=== PATIENT | male | born 1945 | race Caucasian/White ===

== ENCOUNTER 2017-05-04 08:46 | Outpatient (CLI) | payer MEDICARE, OTHER ==
[2017-05-04 12:17] LABS: ALBUMIN/GLOBULIN RATIO 1.4 (1.0-2.2); BILIRUBIN,TOTAL 0.7 mg/dL (0.2-1.0); BUN - BLOOD UREA NITROGEN 30 mg/dL (6-20); CALCIUM 9.5 mg/dL (8.5-10.3); CARBON DIOXIDE - CO2 24 mmol/L (21-32); CHLORIDE 105 mmol/L (101-111); CHOL/HDL RATIO 3.2 (<5.0); CHOLESTEROL 108 mg/dL; CREATININE 1.4 mg/dL (0.6-1.2); GFR - MDRD 50 (>89); GLUCOSE 105 mg/dL (70-100); HDL CHOLESTEROL 34 mg/dL; LDL/HDL RATIO 1.7 (<3.6); POTASSIUM 4.5 mmol/L (3.5-5.0); SODIUM 137 mmol/L (135-145); TOTAL PROTEIN 7.1 g/dL (6.7-8.2); TRIGLYCERIDES 77 mg/dL; VLDL CHOLESTEROL 15 mg/dL
== END 2017-05-04 08:47 | disposition home or self-care (01) ==
LOC: LAB.F 08:46
PROVIDERS: ATTEND Internal Medicine
DX: E78.00 Pure hypercholesterolemia, unspecified (principal); I10 Essential (primary) hypertension; I25.10 Atherosclerotic heart disease of native coronary artery without angina pectoris
CPT/HCPCS: 36415; 80053; 80061

== ENCOUNTER 2017-05-05 07:57 | Outpatient (CLI) | payer MEDICARE, OTHER ==
[2017-05-05 11:27] LABS: CALCIUM 9.4 mg/dL (8.5-10.3); CREATININE 1.2 mg/dL (0.6-1.2); POTASSIUM 4.4 mmol/L (3.5-5.0)
[2017-05-05 11:43] LABS: BILIRUBIN,URINE NEGATIVE (NEGATIVE)
[2017-05-05 11:56] LABS: WBC,URINE 0-3 /HPF (0-3)
== END 2017-05-05 07:58 | disposition home or self-care (01) ==
LOC: LAB.F 07:57
PROVIDERS: ATTEND Internal Medicine
DX: R79.89 Other specified abnormal findings of blood chemistry (principal)
CPT/HCPCS: 36415; 80048; 81001; 82043; 82570

== ENCOUNTER 2017-11-21 08:18 | Outpatient (CLI) | payer MEDICARE, OTHER ==
[2017-11-21 11:07] LABS: BASOPHILS % (AUTO) 0.6 %; EOSINOPHILS # (AUTO) 0.2 10^3/uL (0.0-0.7); EOSINOPHILS % (AUTO) 2.6 %; HGB - HEMOGLOBIN 14.8 g/dL (14.0-18.0); LYMPHOCYTES # (AUTO) 1.5 10^3/uL (1.5-3.5); LYMPHOCYTES % (AUTO) 21.3 %; MEAN CORPUSCULAR HEMOGLOBIN 30.6 pg (27.0-31.0); MEAN CORPUSCULAR HGB CONC 34.7 g/dL (32.0-36.0); MEAN CORPUSCULAR VOLUME 88.2 fL (80.0-94.0); MEAN PLATELET VOLUME 9.1 fL (7.4-11.4); MONOCYTES # (AUTO) 0.6 10^3/uL (0.0-1.0); MONOCYTES % (AUTO) 8.9 %; NEUTROPHILS # (AUTO) 4.6 10^3/uL (1.5-6.6); NEUTROPHILS % (AUTO) 66.6 %; PLT - PLATELET COUNT 148 10^3/uL (130-450); RED BLOOD COUNT 4.83 10^6/uL (4.70-6.10); RED CELL DISTRIBUTION WIDTH 13.5 % (12.0-15.0); WHITE BLOOD COUNT 6.9 x10^3/uL (4.8-10.8)
[2017-11-21 11:13] LABS: ALBUMIN 3.9 g/dL (3.2-5.5); ALBUMIN/GLOBULIN RATIO 1.5 (1.0-2.2); ALKALINE PHOSPHATASE 76 IU/L (42-121); ALT ALANINE AMINOTRANSFERASE 21 IU/L (10-60); AST ASPARTATE AMINOTRANSFERASE 22 IU/L (10-42); BILIRUBIN,TOTAL 0.8 mg/dL (0.2-1.0); BUN - BLOOD UREA NITROGEN 22 mg/dL (6-20); CALCIUM 9.1 mg/dL (8.5-10.3); CARBON DIOXIDE - CO2 23 mmol/L (21-32); CHLORIDE 109 mmol/L (101-111); CHOL/HDL RATIO 2.7 (<5.0); CHOLESTEROL 88 mg/dL; CREATININE 1.2 mg/dL (0.6-1.2); GFR - MDRD 59 (>89); GLUCOSE 107 mg/dL (70-100); HDL CHOLESTEROL 33 mg/dL; LDL CHOLESTEROL,CALCULATED 44 mg/dL; LDL/HDL RATIO 1.3 (<3.6); SODIUM 139 mmol/L (135-145); TOTAL PROTEIN 6.5 g/dL (6.7-8.2); VLDL CHOLESTEROL 11 mg/dL
== END 2017-11-21 08:19 | disposition home or self-care (01) ==
LOC: LAB.F 08:18
PROVIDERS: ATTEND Family Medicine
DX: E78.00 Pure hypercholesterolemia, unspecified (principal); I10 Essential (primary) hypertension; I25.10 Atherosclerotic heart disease of native coronary artery without angina pectoris
CPT/HCPCS: 36415; 80053; 80061; 83721; 85025

== ENCOUNTER 2018-11-06 07:47 | Outpatient (CLI) | payer MEDICARE, OTHER ==
[2018-11-06 13:12] LABS: ALBUMIN 4.3 g/dL (3.2-5.5); ALBUMIN/GLOBULIN RATIO 1.5 (1.0-2.2); ALKALINE PHOSPHATASE 89 IU/L (42-121); ALT ALANINE AMINOTRANSFERASE 25 IU/L (10-60); AST ASPARTATE AMINOTRANSFERASE 23 IU/L (10-42); BILIRUBIN,TOTAL 0.8 mg/dL (0.2-1.0); BUN - BLOOD UREA NITROGEN 24 mg/dL (6-20); CALCIUM 9.2 mg/dL (8.5-10.3); CARBON DIOXIDE - CO2 24 mmol/L (21-32); CHLORIDE 107 mmol/L (101-111); CHOL/HDL RATIO 2.3 (<5.0); CHOLESTEROL 108 mg/dL; CREATININE 1.1 mg/dL (0.6-1.2); GFR - MDRD 65 (>89); GLUCOSE 117 mg/dL (70-100); HDL CHOLESTEROL 46 mg/dL; LDL CHOLESTEROL,CALCULATED 49 mg/dL; LDL/HDL RATIO 1.1 (<3.6); SODIUM 138 mmol/L (135-145); TOTAL PROTEIN 7.1 g/dL (6.7-8.2); VLDL CHOLESTEROL 13 mg/dL
== END 2018-11-06 07:48 | disposition home or self-care (01) ==
LOC: LAB.F 07:47
PROVIDERS: ATTEND Internal Medicine
DX: E78.00 Pure hypercholesterolemia, unspecified (principal); I25.10 Atherosclerotic heart disease of native coronary artery without angina pectoris
CPT/HCPCS: 36415; 80053; 80061; 83036; 83721

== ENCOUNTER 2019-11-21 05:20 | Observation (INO) | payer MEDICARE, OTHER ==
--- NOTE | 2019-11-21 05:22 | ED Physician Documentation ---
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 The episode was associated with diaphoresis. He took two of his significant other's NTG and she drove him to the ED, and by the time he arrived, the symptoms had resolved. He has a h/o 3 v CABG approximately 16 years ago. Review of Systems Constitutional: reports: Sweats. denies: Fever, Chills Eyes: reports: Reviewed and negative Ears: reports: Reviewed and negative Nose: reports: Reviewed and negative Throat: reports: Reviewed and negative Cardiac: reports: Chest pain / pressure. denies: Palpitations, Pedal edema, Calf pain Respiratory: reports: Reviewed and negative GI: reports: Reviewed and negative Skin: reports: Reviewed and negative Musculoskeletal: reports: Reviewed and negative Neurologic: reports: Reviewed and negative PD PAST MEDICAL HISTORY - Past Medical History Past Medical History: Yes Cardiovascular: Hypertension, High cholesterol, Coronary artery disease, IN - Past Surgical History Past Surgical History: Yes Cardiovascular: CABG - Present Medications Home Medications: Ambulatory Orders Medication Instructions Recorded Confirmed Aspirin 81 mg DAILY 11/21/19 11/21/19 Losartan [Cozaar] 100 mg DAILY 11/21/19 11/21/19 Metoprolol Succinate 100 mg DAILY 11/21/19 11/21/19 Rosuvastatin Calcium 20 mg DAILY 11/21/19 11/21/19 amLODIPine [Norvasc] 5 mg DAILY 11/21/19 11/21/19 - Allergies Allergies/Adverse Reactions: Allergies Allergy/AdvReac Type Severity Reaction Status Date / Time No Known Drug Allergies Allergy Verified 11/21/19 05:31 - Living Situation Living Arrangement: reports: At home - Social History Does the pt smoke?: No PD ED PE NORMAL - Vitals Vital signs reviewed: Yes - General General: Alert and oriented X 3, No acute distress, Well developed/nourished - HEENT HEENT: Moist mucous membranes - Neck Neck: Supple, no meningeal sign - Cardiac Cardiac: RRR, No murmur, No gallop, No rub - Respiratory Respiratory: No respiratory distress, Clear bilaterally - Abdomen Abdomen: Soft, Non tender - Derm Derm: Normal color, Warm and dry - Extremities Extremities: No edema - Neuro Neuro: Alert and oriented X 3 Results - Vitals Vitals: Vital Signs - 24 hr 11/21/19 11/21/19 11/21/19 05:29 06:12 06:16 Temperature 36.2 C L Heart Rate 57 L 50 L 49 L Respiratory 20 19 24 Rate Blood Pressure 152/82 H 121/73 121/73 O2 Saturation 99 99 100 Oxygen O2 Source Room air - EKG (time done) No standard instances Rate: Rate (enter#) (53) Rhythm: Sinus bradycardia Jennings: Normal Intervals: Normal MD QRS: Normal Ischemia: Normal ST segments, Q waves (III, aVF) - Labs Labs: Laboratory Tests 11/21/19 11/21/19 11/21/19 05:35 05:35 05:35 WBC 8.3 RBC 4.72 Hgb 14.7 Hct 43.1 MCV 91.3 MCH 31.1 H MCHC 34.1 RDW 12.7 Plt Count 150 MPV 10.7 Neut # (Auto) 5.4 Lymph # (Auto) 1.8 [place] # (Auto) 0.7 Eos # (Auto) 0.2 Baso # (Auto) 0.0 Absolute Nucleated RBC 0.00 Nucleated RBC % 0.0 PT INR APTT Sodium 137 Potassium 4.1 Chloride 104 Carbon Dioxide 27 Anion Gap 6.0 BUN 24 H Creatinine 1.4 H Estimated GFR (MDRD) 49 L Glucose 134 H Calcium 9.3 Total Bilirubin 0.9 AST 21 ALT 24 Alkaline Phosphatase 81 Troponin I High Sens 6.9 Total Protein 6.8 Albumin 4.0 Globulin 2.8 Albumin/Globulin Ratio 1.4 Lipase 30 11/21/19 05:35 WBC RBC Hgb Hct MCV MCH MCHC RDW Plt Count MPV Neut # (Auto) Lymph # (Auto) [place] # (Auto) Eos # (Auto) Baso # (Auto) Absolute Nucleated RBC Nucleated RBC % PT 11.8 INR 1.0 APTT 32.2 Sodium Potassium Chloride Carbon Dioxide Anion Gap BUN Creatinine Estimated GFR (MDRD) Glucose Calcium Total Bilirubin AST ALT Alkaline Phosphatase Troponin I High Sens Total Protein Albumin Globulin Albumin/Globulin Ratio Lipase - Rads (name of study) CXR Radiology: Prelim report reviewed, See rad report PD MEDICAL DECISION MAKING - ED course Complexity details: reviewed results, re-evaluated patient, considered differential, d/w patient ED course: initial ED w/u is reassuring. However, he has several cardiac risk factors (HTN, hypercholesterolemia, h/o CAD with 3v CABG and IN). His heart score is 5. D/W Dr. Cruz, accepts to [facility] for observation. Departure - Departure Disposition: ED Place in Observation Clinical Impression: Chest pain Condition: Stable
[2019-11-21 05:48] LABS: BASOPHILS % (AUTO) 0.5 %; EOSINOPHILS # (AUTO) 0.2 10^3/uL (0.0-0.7); EOSINOPHILS % (AUTO) 2.7 %; HGB - HEMOGLOBIN 14.7 g/dL (14.0-18.0); LYMPHOCYTES # (AUTO) 1.8 10^3/uL (1.5-3.5); LYMPHOCYTES % (AUTO) 21.6 %; MEAN CORPUSCULAR HEMOGLOBIN 31.1 pg (27.0-31.0); MEAN CORPUSCULAR HGB CONC 34.1 g/dL (32.0-36.0); MEAN CORPUSCULAR VOLUME 91.3 fL (80.0-94.0); MEAN PLATELET VOLUME 10.7 fL (7.4-11.4); MONOCYTES # (AUTO) 0.7 10^3/uL (0.0-1.0); NEUTROPHILS # (AUTO) 5.4 10^3/uL (1.5-6.6); NEUTROPHILS % (AUTO) 65.8 %; PLT - PLATELET COUNT 150 10^3/uL (130-450); RED BLOOD COUNT 4.72 10^6/uL (4.70-6.10); RED CELL DISTRIBUTION WIDTH 12.7 % (12.0-15.0); WHITE BLOOD COUNT 8.3 x10^3/uL (4.8-10.8)
[2019-11-21 05:54] LABS: PT - PROTHROMBIN TIME 11.8 secs (9.9-12.6)
--- NOTE | 2019-11-21 05:58 | XRAY Report ---
Reason: Chest pain Procedure Date: 11/21/2019 Accession Number: [id number] / [id number] Procedure: XR - Chest 1 View X-Ray CPT Code: 16388 Final Report FULL RESULT: EXAM: CHEST RADIOGRAPHY EXAM DATE: 11/21/2019 05:48 AM. CLINICAL HISTORY: Chest pain. COMPARISON: None. TECHNIQUE: 1 view. FINDINGS: Lungs/Pleura: No focal opacities evident. No pleural effusion. No pneumothorax. Mediastinum: Cardiomegaly and postoperative changes. Other: None. IMPRESSION: Cardiomegaly, but no evidence of acute cardiopulmonary disease. RADIA
[2019-11-21 06:01] LABS: PARTIAL THROMBOPLASTIN TIME 32.2 secs (24.9-33.3)
[2019-11-21 06:02] LABS: ALBUMIN/GLOBULIN RATIO 1.4 (1.0-2.2); BILIRUBIN,TOTAL 0.9 mg/dL (0.2-1.0); CALCIUM 9.3 mg/dL (8.5-10.3); CREATININE 1.4 mg/dL (0.6-1.2); TOTAL PROTEIN 6.8 g/dL (6.7-8.2)
[2019-11-21] MEDS ORDERED: SODIUM CHLORIDE FLUSH 0.9% 10 ML SYRINGE IVP PRN (08:03)
[2019-11-21] MEDS ORDERED: ONDANSETRON 4 MG/2 ML VIAL IVP PRN (08:03)
[2019-11-21] MEDS ORDERED: ACETAMINOPHEN 325 MG TABLET PO PRN (08:03)
[2019-11-21] MEDS ORDERED: MORPHINE 2 MG/ML CARPUJECT IVP PRN (08:03)
[2019-11-21] MEDS ORDERED: amLODIPine 5 MG TABLET PO SCH (09:00)
[2019-11-21] MEDS ORDERED: FAMOTIDINE 20 MG TABLET PO SCH (09:00)
[2019-11-21] MEDS ORDERED: LOSARTAN 50 MG TABLET PO SCH (09:00)
[2019-11-21] MEDS ORDERED: ASPIRIN CHEW 81 MG TABLET PO SCH (09:00)
[2019-11-21] MEDS ORDERED: METOPROLOL SUCCINATE 50 MG TABLET PO SCH (09:00)
--- NOTE | 2019-11-21 09:54 | PHARMACY PROGRESS NOTE ---
- Best Possible Medication History Admit Date and Time: 11/21/19 0803 Processed by: Nursing Medication History completed: Yes As the person ultimately responsible for medication therapy, providers are able to order a medication from an existing home medication list in [facility] via the "Reconcile Routine" prior to Confirmation of that medication by business support manager. Such practice is discouraged except when the physician, in their clinical judgment, deems that a medical need exists for a medication without regard to previous use.
[2019-11-21] MEDS: SODIUM CHLORIDE FLUSH 0.9% 10 ML SYRINGE IVP SCH ×2 (09:59→16:05)
--- NOTE | 2019-11-21 11:33 | HISTORY & PHYSICAL EXAMINATION ---
DATE OF SERVICE: 11/21/2019 Physician: Georgina Cruz MD CC to: Dr Alvaro Lemon HISTORY OF PRESENT ILLNESS: This is a 74-year-old white male with a history of hypertension, obesity, coronary artery disease with prior FL 16 years ago and subsequent 3-vessel bypass surgery. Since that time, he has had no episodes of angina, is independent, walks 2-1/2 miles a day. Today after breakfast and while drinking coffee, he had new onset of left anterior chest pain along with severe diaphoresis. He states the only difference from the FL symptoms were that at this time, he had no jaw pain or left arm pain. He took 2 sublingual nitroglycerin of his girlfriend, and while his girlfriend was driving him to the ER, his symptoms dissipated, had lasted about 30 minutes total. He has had no further chest pain in the ER. Patient's cardiac risk score is 5 and he is being placed in Observation to evaluate chest pain. PAST MEDICAL HISTORY 1. Obesity. 2. Hypertension. 3. Hyperlipidemia. 4. Old FL. 5. History of coronary artery bypass graft 16 years ago. ALLERGIES: NONE. MEDICATIONS 1. Aspirin 81 mg daily at night. 2. Losartan 100 mg daily. 3. Metoprolol succinate 100 mg daily. 4. Amlodipine 5 mg daily. 5. Crestor 20 mg every night. SOCIAL HISTORY: He lives with his girlfriend. He is retired from working 25 years at [employer]. He is a nonsmoker, drinks no alcohol, and tries to exercise daily. FAMILY HISTORY: No inherited diseases. REVIEW OF SYSTEMS: Patient denies any leg edema, palpitations, syncope. He has not had a Regulatory Assistant in many years. A comprehensive review of systems was performed and the pertinent positives are listed above, the rest are negative. PHYSICAL EXAMINATION GENERAL: Obese white male, who is in no distress in bed with head of bed elevated. VITAL SIGNS: Blood pressure 148/74, pulse 49-52 in sinus rhythm, afebrile, room air saturation 99%. HEENT: Unremarkable. Moist oral mucosa is present. Good dentition. NECK: No JVD. CHEST: Clear. HEART: Normal heart sounds. No murmur. ABDOMEN: Soft, obese, with pannus, nontender. EXTREMITIES: No clubbing, cyanosis or edema. NEUROLOGIC: Grossly intact. LABORATORY DATA: Normal electrolytes, BUN 24, creatinine 1.4. Troponin high sensitivity 6.9. INR normal at 1. CBC unremarkable. CHEST X-RAY: Cardiomegaly, but no pulmonary disease. EKG: Sinus bradycardia, rate of 53, there are deep inferior Q-waves and early R/S transition, all consistent with an old inferior and posterior FL. There are no ST segment or T-wave abnormalities. There is no old EKG available for comparison. IMPRESSION/DIAGNOSES 1. Unstable angina. 2. Old myocardial infarction. 3. Status post coronary artery bypass graft, done in [place]. 4. Acute kidney injury. 5. Obesity. 6. History of hypertension. 7. History of hyperlipidemia. PLAN: Place patient in Observation status on telemetry. Cycle troponins. If they are negative, then proceed to treadmill exercise stress testing with nuclear myocardial perfusion imaging. Continue with medications, but hold orders for severe bradycardia will be added. Depending on length of stay, if he is fasting and still here in the morning, a lipid panel will be drawn. Add sl NTG prn to his regimen. Patient currently has no Regulatory Assistant since there have been no symptoms over the past 16 years, and he would not choose to be followed at [place], due to the distance, thus we would need to discuss with a Regulatory Assistant at [facility] if the stress test shows ischemia and if he needs transfer for an angiogram. CODE STATUS: FULL CODE. DEEP VENOUS THROMBOSIS PROPHYLAXIS: SCDs. ATTESTATION: Patient is expected to be discharged or transferred to another facility within 96 hours: Yes. TD: 11/21/2019 11:08 JAKE
--- NOTE | 2019-11-21 15:09 | CARDIAC PROCEDURE NOTE ---
DATE OF SERVICE: 11/21/2019 Physician: Georgina Cruz MD INDICATION: Chest pain. CARDIAC RISK FACTORS: Male gender, obesity, hypertension, hyperlipidemia. The patient has a history of prior ME and prior CABG already. DESCRIPTION OF PROCEDURE: After signing informed consent, the patient underwent a Mehran-protocol treadmill stress test with nuclear myocardial perfusion imaging. RESTING HEART RATE: 54. PEAK HEART RATE: 89 (61% predicted maximum heart rate for age). RESTING BLOOD PRESSURE: 129/64. PEAK BLOOD PRESSURE: 167/64. The patient exercised for 5 minutes and 10 seconds on a Mehran-protocol treadmill stress test. He achieved a peak heart rate of only 89 (61% PMHR) and 7.1 METs. (The patient did get his usual metoprolol dose that morning). The patient requested the exercise to stop because of fatigue, SOB and exhaustion. He rated his perceived exertion at 15/20 on the Cally scale. He developed shortness of breath, but had no chest pain. His O2 saturations were 96-98% throughout on room air. ELECTROCARDIOGRAM AT REST: Sinus bradycardia, inferior Q-waves, early R/S transition consistent with old infero-posterior ME. ELECTROCARDIOGRAM AT PEAK: 0.[address] depressions in leads V2 and V4. SUMMARY 1. Abnormal resting electrocardiogram, consistent with old infero-posterior myocardial infarction. 2. Fair to poor exercise tolerance. 3. The patient is unable to achieve target heart rate, partly because a high dose of metoprolol was given this morning. 4. Borderline significant electrocardiogram changes occur with exertion. 5. Nuclear images reported separately. 6. This patient's cardiac risk based on all the above: Moderate to high. RECOMMENDATION: If the nuclear images reveal no ischemia, it may be because of insufficient heart rate response; then would recommend repeat stress testing using pharmacologic stress. cc: Alvaro Lemon MD TD: 11/21/2019 14:46 MTDWilliam
[2019-11-21 15:11] VITALS: BP 126/59
--- NOTE | 2019-11-21 15:14 | Nuclear Medicine Report ---
Reason: Chest pain Procedure Date: 11/21/2019 Accession Number: [id number] / [id number] Procedure: NM - Myocardial Perfusion STR/RST CPT Code: Addended Final Report FULL RESULT: EXAM: SINGLE-ISOTOPE EXERCISE STRESS TEST. SINGLE-ISOTOPE AND ONE-DAY REST/STRESS MYOCARDIAL PERFUSION SCANS WITH TOMOGRAPHIC IMAGING, QUANTITATIVE ANALYSIS, WALL MOTION ANALYSIS AND CALCULATION OF EJECTION FRACTION. EXAM DATE: 11/21/2019 10:41 AM. CLINICAL HISTORY: Chest pain. COMPARISON: None available. TECHNIQUE: A rest myocardial perfusion scan was done with tomography after the intravenous administration of 10 mCi Tc-99m sestamibi. After an appropriate delay, a treadmill exercise stress was performed according to department protocol. The patient exercised for 5 minutes and 10 seconds. The maximum heart rate was 89 bpm, which was 61% of the maximum predicted heart rate of 144 bpm. At approximately peak heart rate, 40.3 mCi of Tc-99m sestamibi was injected for stress myocardial perfusion scan. Motion correction was applied when appropriate. Gated tomographic images were obtained for wall motion analysis and computation of left ventricular ejection fraction. FINDINGS: There is a large, severe, fixed defect involving the inferior and inferolateral castañeda as well as the apex. No convincing significant reversible perfusion defects. Summed stress score 15 Summed rest score 15 Summed difference score 0 Wall motion analysis demonstrates decreased septal motion. The left ventricular end-diastolic volume is 82 cc. The left ventricular end-systolic volume is 29 cc. The left ventricular ejection fraction is calculated to be 65%. IMPRESSION: 1. Large, severe, fixed defect involving the inferior and inferolateral castañeda. Smaller fixed defect in the apex. No convincing significant reversible perfusion defects. 2. Normal left ventricular ejection fraction of 65%. 3. Decreased septal wall motion. 4. Normal left ventricular cavity size, no change with stress. 5. The patient did not achieve adequate heart rate elevation with exercise which may decrease sensitivity for this exam. Please correlate findings with stress ECG tracings and procedure notes. RADIA The call report notification system was initiated by Dr. Aniceto Alberts at 03:13 PM on 11/21/2019. ADDENDUM: 11/21/19 15:18 The above call report findings were discussed with Dr Georgina Cruz by Dr. Aniceto Alberts at 03:18 PM on 11/21/2019.
--- NOTE | 2019-11-21 16:40 | Discharge Plan ---
Discharge Plan Problem Reviewed?: Yes Disposition: Home, Self Care Condition: Fair Prescriptions: Nitroglycerin [Nitrostat] 0.4 mg SL Q5MIN PRN #100 tablet PRN Reason: Chest Pain Diet: Cardiac Activity Restrictions: Activity as Tolerated Shower Restrictions: No Driving Restrictions: No Instruction Topics: Angina Unstable Health Concerns: You were here in Observation status to evaluate your recurrence of chest pain. You did not have a new heart attack. The Echocardiogram shows strong heart muscle function. The nuclear heart scan does show evidence of a scar from an old heart attack in the back of your heart but confirms overall good heart strength. The nuclear scan did not show areas that are lacking blood flow, HOWEVER, that result is during a "low level of exercise", because your heart rate did not increase to an adequate level where the test is considered CONCLUSIVE. Thus, you will need a repeat stress test done as an outpatient, using the pharmacologic agent (the non-walking stress test). Plan of Treatment: You are being sent home with a new prescription for nitroglycerin sublingual for you to use if there should be more angina. The prescription was sent electronically to your [facility] pharmacy in [place]. Resume all your other usual medications. You need another stress test, without having caffeine for 24 hours preceding it, and using a medicine that creates adequate stress to make the test a conclusive test. Until that repeat stress test is done, you should NOT BE exercising with the 2.5 mile walks daily. You are allowed to do average daily activities like cooking and driving and shopping, however. You need to see your PCP to get an appointment for an outpatient stress test and a referral to a Senior Mobile Solutions Architect, for further evaluation and management of your coronary disease. Care Goals: Improvement in symptoms and stabilization are the goals. Assessment: Patient understands and is agreeable with the plan. Additional Instructions or Follow Up instructions: If you have new or worsening symptoms, call your PCP or Senior Mobile Solutions Architect for advice, or come to the ER. No Smoking: If you smoke, Please STOP! Call for help. Follow-up with: Alvaro Lemon MD [Primary Care Provider] -
--- NOTE | 2019-11-21 17:30 | DISCHARGE SUMMARY ---
"Discharge Summary Admit Date: 11/21/19 Discharge Date: 11/21/19 Discharging Provider: Dr Georgina Cruz Primary Care Provider: Dr Alvaro Lemon Code Status: Attempt Resuscitation Condition at Discharge: Fair Discharge Disposition: 01 Home, Self Care - HPI History of Present Illness: This is a 74-year-old white male with history of hypertension and hyperlipidemia who had an NY 16 years ago that led to three-vessel CABG. He has not had chest pain since that time and has not had a Basket Hand Braider. He walks 2.5 miles a day (except when it rains). After breakfast this morning he developed similar chest pain with diaphoresis (but without left arm pain and without jaw pain, which he had with his [place]). He took 2 sublingual nitroglycerin, and the chest pain resolved by the time he was driven to the ER by his girlfriend. EKG shows old inferior Q waves, first troponin is within normal limits. Because of his cardiac history and recurrence of his typical angina, he is being admitted in Observation status for chest pain evaluation and management. - CONSULTS | PROCEDURES Procedures: Exercise Stress test with Nuclear Myocardial Perfusion imaging - HOSPITAL COURSE Hospital Course: 1) Unstable angina This was a first recurrence of angina since his CABG, therefore, by definition, unstable angina. He had no further episodes of chest pain. His troponins were within normal limits x2. He proceeded to have a nuclear stress test: a pharmacologic stress test was ordered (since his HR was bradycardic on Metoprolol and there was concern over him not achieving target HR with walking), but he had taken in caffeine just 4 hours previously, therefore he had a treadmill stress test. With exercise, he did not achieve target heart rate and became exhausted and SOB before target. There was no desaturation. He had no chest pain with exercise. The nuclear scan revealed a fixed defect, [id number] scar, but no areas of ischemia, however this was at an insufficient peak heart rate. The patient was discharged with a new prescription for sublingual nitroglycerin prn and advised to see his PCP for referral to a Basket Hand Braider and a rescheduling of an outpatient pharmacologic stress test. 2) Old [place] A resting Echo was done that did not describe a regional wall motion abnormality and reported an LVEF of 65%. The nuclear scan DID confirm an old [place], but also reported a good EF of 65%. 3) S/P CABG He is 16 years post CABG and has had no stress test in this time. We discussed that CABGs start to have stenoses at 15 years, which may be the cause of his new angina. 4) JADYN His BUN/creat was 24/1.4. We had no old labs for comparison. 5) Obesity His BMI is 31, and weight loss would be prudent. 6) Hx HTN BP was under good control. His meds were kept unchanged. 7) Hx hyperlipidemia His Crestor was kept the same. - ALLERGIES Allergies/Adverse Reactions: Allergies Allergy/AdvReac Type Severity Reaction Status Date / Time ezetimibe [From Zetia] Allergy Unknown Verified 11/22/19 07:43 - MEDICATIONS Home Medications: Ambulatory Orders Medication Instructions Recorded Confirmed Aspirin 81 mg DAILY 11/21/19 11/21/19 Losartan [Cozaar] 100 mg DAILY 11/21/19 11/21/19 Metoprolol Succinate 100 mg DAILY 11/21/19 11/21/19 Nitroglycerin [Nitrostat] 0.4 mg SL Q5MIN PRN #100 tablet 11/21/19 Rosuvastatin Calcium 20 mg DAILY 11/21/19 11/21/19 amLODIPine [Norvasc] 5 mg DAILY 11/21/19 11/21/19 - PHYSICAL EXAM AT DISCHARGE General Appearance: positive: No acute distress, Alert Eyes Bilateral: positive: Normal inspection, EOMI ENT: positive: ENT inspection nml, No signs of dehydration Neck: positive: Nml inspection, No JVD Respiratory: positive: No respiratory distress, Breath sounds nml Cardiovascular: positive: Regular rate & rhythm, No murmur Abdomen: positive: Non-tender, No distention, Other (Obese) Skin: positive: Color nml Extremities: positive: Non-tender, No pedal edema Neurologic/Psychiatric: positive: Oriented x3, Other (Grossly intact) - LABS Result Diagrams: 11/21/19 05:35 11/21/19 05:35 - DIAGNOSTIC IMAGING Diagnostic Imaging Results: Final report reviewed, Discussed with radiologist - FOLLOW UP Follow Up: See PCP in 5-7 days, for ordering a pharmacologic stress test and referral to a Basket Hand Braider. - TIME SPENT Time Spent in Discharge (Minutes): 40"
== END 2019-11-21 18:10 | disposition home or self-care (01) ==
LOC: ED 05:20 → MS2 08:03
PROVIDERS: ADMIT Internal Medicine; ATTEND Internal Medicine
DX: I25.110 Atherosclerotic heart disease of native coronary artery with unstable angina pectoris (principal); I10 Essential (primary) hypertension; E78.5 Hyperlipidemia, unspecified; E66.9 Obesity, unspecified; Z68.31 Body mass index [BMI] 31.0-31.9, adult; I25.2 Old myocardial infarction; Z79.82 Long term (current) use of aspirin; Z95.1 Presence of aortocoronary bypass graft
CPT/HCPCS: 36415; 71045; 78452; 80053; 83690; 84484; 85025; 85610; 85730; 93005; 93017; 93306; 99284; 99285; A9500; G0378

== ENCOUNTER 2020-08-29 05:15 | Outpatient (CLI) | payer MEDICARE | END 2020-08-29 05:16 | disposition EMS.NT | LOC: EMS 05:15 | DX: M54.5 Low back pain (principal); R10.9 Unspecified abdominal pain ==

== ENCOUNTER 2020-08-29 06:03 | Emergency (ER) | payer MEDICARE ==
[2020-08-29] MEDS ORDERED: DEXAMETHASONE 10 MG/ML VIAL IVP STA (06:26)
[2020-08-29] MEDS ORDERED: SODIUM CHLORIDE 0.9% 1,000 ML IV STA (06:26)
[2020-08-29] MEDS ORDERED: KETOROLAC 30 MG/ML VIAL IVP STA (06:26)
--- NOTE | 2020-08-29 06:29 | ED Physician Documentation ---
PD HPI BACK PAIN - Stated complaint Stated Complaint: RT BACK/SIDE PAIN - Chief complaint Chief Complaint: Back Pain - History obtained from History obtained from: Patient - History of Present Illness Timing - onset: How many days ago (4) Timing - duration: Days (4) Timing - details: Gradual onset, Still present Location: Lower, Right Quality: Pain, Spasm, Sharp Associated symptoms: No: Fever, Weakness, Numbness, Incontinent of urine, Unable to urinate, Hematuria, Incontinent of stool Improves with: Rest, Position, Meds Worsened by: Movement Similar symptoms before: Diagnosis (kidney stone) Recently seen: Not recently seen - Additional information Additional information: Previously well 75-year-old male with a history of hypertension and coronary artery disease s/p CABG 17 years ago has developed acute right flank pain about 4 days ago. He states that it started out slowly and was he was able to control pain with Excedrin and time has gone by this morning the pain is much worse he has pain when he moves. He does not have any history of an injury to his back no heavy lifting no odd positions.He has not otherwise been ill states that he was constipated and he took some Ex-Lax and resolve that. The pain he has is radiating into the right groin. Review of Systems Constitutional: denies: Fever Eyes: denies: Decreased vision Ears: denies: Ear pain Nose: denies: Congestion Throat: denies: Sore throat Cardiac: denies: Chest pain / pressure, Palpitations Respiratory: denies: Dyspnea, Cough GI: denies: Abdominal Pain, Nausea, Vomiting : denies: Dysuria, Frequency Skin: denies: Rash Musculoskeletal: reports: Back pain. denies: Neck pain, Extremity pain Neurologic: denies: Generalized weakness, Focal weakness, Numbness PD PAST MEDICAL HISTORY - Past Medical History Past Medical History: Yes Cardiovascular: Hypertension, High cholesterol, Coronary artery disease, [place] Respiratory: None Neuro: None Endocrine/Autoimmune: None GI: None : Kidney stones HEENT: None Psych: None Musculoskeletal: None Derm: None - Past Surgical History Past Surgical History: Yes Cardiovascular: CABG - Present Medications Home Medications: Ambulatory Orders Medication Instructions Recorded Confirmed Aspirin 81 mg DAILY 11/21/19 08/29/20 Losartan [Cozaar] 100 mg DAILY 11/21/19 08/29/20 Metoprolol Succinate 100 mg DAILY 11/21/19 08/29/20 Nitroglycerin [Nitrostat] 0.4 mg SL Q5MIN PRN #100 tablet 11/21/19 08/29/20 Rosuvastatin Calcium 20 mg DAILY 11/21/19 08/29/20 amLODIPine [Norvasc] 5 mg DAILY 11/21/19 08/29/20 - Allergies Allergies/Adverse Reactions: Allergies Allergy/AdvReac Type Severity Reaction Status Date / Time ezetimibe [From Zetia] Allergy Unknown Verified 08/29/20 06:17 - Social History Does the pt smoke?: No Smoking Status: Never smoker Does the pt drink ETOH?: No Does the pt have substance abuse?: No - Immunizations Immunizations are current?: Yes - POLST Patient has POLST: No PD ED PE NORMAL - Vitals Vital signs reviewed: Yes (normal ) - General General: Alert and oriented X 3, Well developed/nourished, Other (The patient appears to be in pain with any movement. ) - HEENT HEENT: Atraumatic, PERRL, EOMI - Neck Neck: Supple, no meningeal sign, No bony TTP - Cardiac Cardiac: RRR, No murmur - Respiratory Respiratory: No respiratory distress, Clear bilaterally - Abdomen Abdomen: Normal bowel sounds, Soft, Non tender, Non distended, No organomegaly - Back Back: No CVA TTP, No spinal TTP - Derm Derm: Normal color, Warm and dry, No rash - Extremities Extremities: No deformity, No edema - Neuro Neuro: Alert and oriented X 3, propulsion generator repairer 2-12 intact, No motor deficit, No sensory deficit, Normal speech Eye Opening: Spontaneous Motor: Obeys Commands Verbal: Oriented GCS Score: 15 - Psych Psych: Normal mood, Normal affect Results - Vitals Vitals: Vital Signs - 24 hr 08/29/20 08/29/20 06:14 06:18 Temperature 36.0 C L Heart Rate 57 L 63 Respiratory 17 17 Rate Blood Pressure 153/90 H O2 Saturation 100 98 Oxygen O2 Source Room air - Labs Labs: Laboratory Tests 08/29/20 06:49 Sodium 140 Potassium 4.2 Chloride 106 Carbon Dioxide 22 Anion Gap 12.0 BUN 24 H Creatinine 1.3 H Estimated GFR (MDRD) 54 L Glucose 134 H Calcium 9.7 Total Bilirubin 0.7 AST 19 ALT 20 Alkaline Phosphatase 86 Total Protein 7.4 Albumin 4.4 Globulin 3.0 Albumin/Globulin Ratio 1.5 Lipase 32 Procedures - Bedside sono Bedside sono by EMP: With use bedside ultrasound the right kidney is imaged there is per to be hydronephrosis and it is mildly sonographically tender. PD MEDICAL DECISION MAKING - ED course Complexity details: reviewed old records, reviewed results, re-evaluated patient, considered differential, d/w patient ED course: 75-year-old male with a 4-day history of right flank pain has some hydronephrosis on bedside ultrasound examination of the right kidney. His exam is concerning for the possibility of acute back spasm and kidney stone. The patient however gives a history that this is mostly worse with movement and that would not be consistent with kidney stone. He is administered IV saline, todadal, decadron and a CT of the abdomen and pelvis is obtained. At shift change the results of the scan are pending a read by the radiologist and the care of the patient is turned over to Dr. Pino.
[2020-08-29 07:08] LABS: ALBUMIN 4.4 g/dL (3.2-5.5); ALBUMIN/GLOBULIN RATIO 1.5 (1.0-2.2); BILIRUBIN,TOTAL 0.7 mg/dL (0.2-1.0); CALCIUM 9.7 mg/dL (8.5-10.3); CREATININE 1.3 mg/dL (0.6-1.2); TOTAL PROTEIN 7.4 g/dL (6.7-8.2)
--- NOTE | 2020-08-29 07:09 | ED Physician Documentation ---
ED Addendum - Addendum Addendum: 08/29/20 07:08 Patient endorsed to me by Dr. Gilman pending CT read. Will evaluate and treat. 08/29/20 08:00 Upon interview of the patient, he is confirms that he has had 3 to 4 days of gradual onset constant sharp right flank pain radiating to the lower back, worse with movement and twisting of the back as well as pressing on the muscle, initially mild and worsening to moderate pain, partially relieved with Toradol which we gave here, without any associated fever, urinary symptoms, abdominal pain, nausea, shortness of breath, chest pain, cough. Patient had a normal bowel movement yesterday. He is passing flatus. No history of abdominal surgeries. Upon review of his CT results I discussed with Dr. Cristina, radiologist. Patient has a chronic low-grade 3 cm partial small bowel obstruction without fat stranding or bowel thickening, requiring outpatient follow-up with GI. She noted that he has no enlarged lymph nodes, no discernible mass, no adhesions noted. He also has a duodenal diverticulum which does not appear inflamed. Of note, he does have posterior disc protrusion at L4/L5. Discussed these results with the patient who is aware that he needs to follow-up outpatient GI. Abdomen completely nontender. Rectal exam with brown stool in the vault. No CVA ttp. 08/29/20 08:16 08/29/20 08:53 Patient's symptoms resolved s/p robaxin, indicating muscle strain is likely primary cause of symptoms. will give script and strict return precautions. F/u GI, general surgery, primary doctor for incidental findings. 08/29/20 09:06 Diagnosis: 1. muscle strain 2. diverticulosis 3. kidney stone 4. partial small bowel obstruction 5. gallstones
[2020-08-29 07:17] LABS: BASOPHILS # (AUTO) 0.1 10^3/uL (0.0-0.1); EOSINOPHILS # (AUTO) 0.2 10^3/uL (0.0-0.7); EOSINOPHILS % (AUTO) 2.5 %; HGB - HEMOGLOBIN 15.8 g/dL (14.0-18.0); LYMPHOCYTES # (AUTO) 1.2 10^3/uL (1.5-3.5); LYMPHOCYTES % (AUTO) 17.2 %; MEAN CORPUSCULAR HEMOGLOBIN 31.1 pg (27.0-31.0); MEAN CORPUSCULAR HGB CONC 34.1 g/dL (32.0-36.0); MEAN CORPUSCULAR VOLUME 91.3 fL (80.0-94.0); MEAN PLATELET VOLUME 10.9 fL (7.4-11.4); MONOCYTES # (AUTO) 0.6 10^3/uL (0.0-1.0); MONOCYTES % (AUTO) 8.4 %; NEUTROPHILS # (AUTO) 4.8 10^3/uL (1.5-6.6); NEUTROPHILS % (AUTO) 70.5 %; PLT - PLATELET COUNT 167 10^3/uL (130-450); RED BLOOD COUNT 5.08 10^6/uL (4.70-6.10); RED CELL DISTRIBUTION WIDTH 12.6 % (12.0-15.0); WHITE BLOOD COUNT 6.8 x10^3/uL (4.8-10.8)
[2020-08-29 07:58] LABS: BILIRUBIN,URINE NEGATIVE (NEGATIVE); GLUCOSE, URINE (UA) NEGATIVE (NEGATIVE); KETONES,URINE (UA) NEGATIVE (NEGATIVE); LEUKOCYTE ESTERASE, URINE NEGATIVE (NEGATIVE); NITRITE,URINE NEGATIVE (NEGATIVE); OCCULT BLOOD,URINE NEGATIVE (NEGATIVE); PH,URINE 5.5 PH (5.0-7.5); PROTEIN,URINE NEGATIVE (NEGATIVE); UROBILINOGEN,URINE 0.2 (NORMAL) E.U./dL (NORMAL)
[2020-08-29 08:03] LABS: CLARITY,URINE HAZY (CLEAR)
[2020-08-29] MEDS ORDERED: methocarbamoL 500 MG TABLET PO STA (08:13)
[2020-08-29] MEDS ORDERED: ACETAMINOPHEN 325 MG TABLET PO STA (08:13)
[2020-08-29 08:14] LABS: AMORPHOUS SEDIMENT,UR Moderate /LPF; BACTERIA,URINE Rare /HPF (None Seen); MUCUS,URINE Moderate Strands; RBC,URINE 0-5 /HPF (0-5); SQUAMOUS EPITHELIAL CELL,UR RARE Squamous (<= Few)
[2020-08-29] MEDS ORDERED: LIDOCAINE PATCH 5% TOP STA (08:15)
[2020-08-29 09:00] VITALS: BP 133/90
--- NOTE | 2020-08-29 09:59 | CT Report ---
PROCEDURE: Abdomen/Pelvis WO INDICATIONS: right flank pain TECHNIQUE: Noncontrast 5 mm thick sections acquired from the diaphragms to the symphysis. 5 mm coronal and sagi ttal reformats were then performed. For radiation dose reduction, the following was used: automated exposure control, adjustment of mA and/or kV according to patient size. COMPARISON: CT abdomen 12/22/2009 FINDINGS: Image quality: Excellent. ABDOMEN: Lung bases: Minimal appearance of pulmonary interstitial with groundglass opacity in the left lower l obe. Heart size is normal. Solid organs: Liver and spleen are normal in size. Gallbladder demonstrates small dependent calcifi cations without wall thickening Pancreas is normal in contours. No adrenal nodules. Kidneys are at rophic with bilateral cysts. Punctate-RT left inferior pole renal calculus. Peritoneum and bowel: Unenhanced bowel loops demonstrate normal wall thickness and caliber. Duodenal diverticulum is present. Colonic diverticula are present without associated inflammatory change. No free fluid or air. Nodes and vessels: No retroperitoneal or mesenteric adenopathy by size criteria. Aorta and inferior vena cava are normal in caliber. Miscellaneous: Ventral hernia with borderline bowel herniation. Hiatal hernia is present. PELVIS: Genitourinary: Bladder wall thickness is normal. Miscellaneous: No inguinal hernias or adenopathy. Bones: No suspicious bony lesions. No vertebral body compression fractures. IMPRESSION: 1. Nonobstructing superior left renal calculus. 2. Cholelithiasis without imaging evidence of cholecystitis. 3. Duodenal diverticulum. 4. Minimal left lower lobe appearance of opacity. This could represent groundglass like appearance se condary to infection or inflammation. However, appearance could also be secondary to atelectasis and/ or dependent edema. 5. Diverticulosis. The above findings are concordant with preliminary report. Reviewed by: Rose Mary South MD on 08/29/2020 9:58 AM [facility] Approved by: Rose Mary South MD on 08/29/2020 9:58 AM PST Station ID: [id number]
== END 2020-08-29 09:00 | disposition home or self-care (01) ==
LOC: ED 06:03
DX: S39.012A Strain of muscle, fascia and tendon of lower back, initial encounter (principal); X58.XXXA Exposure to other specified factors, initial encounter; K80.20 Calculus of gallbladder without cholecystitis without obstruction; K57.10 Diverticulosis of small intestine without perforation or abscess without bleeding; K56.600 Partial intestinal obstruction, unspecified as to cause; Z95.1 Presence of aortocoronary bypass graft; I10 Essential (primary) hypertension; N13.30 Unspecified hydronephrosis
CPT/HCPCS: 36415; 74176; 80053; 81001; 83690; 85025; 96374; 96375; 99284; A9270; 81003; 87086

== ENCOUNTER 2020-09-24 07:46 | Outpatient (CLI) | payer MEDICARE ==
[2020-09-24 08:01] LABS: BASOPHILS # (AUTO) 0.1 10^3/uL (0.0-0.1); BASOPHILS % (AUTO) 0.9 %; EOSINOPHILS # (AUTO) 0.3 10^3/uL (0.0-0.7); EOSINOPHILS % (AUTO) 4.9 %; HCT - HEMATOCRIT 45.8 % (42.0-52.0); HGB - HEMOGLOBIN 15.4 g/dL (14.0-18.0); LYMPHOCYTES # (AUTO) 1.5 10^3/uL (1.5-3.5); LYMPHOCYTES % (AUTO) 23.3 %; MEAN CORPUSCULAR HEMOGLOBIN 30.7 pg (27.0-31.0); MEAN CORPUSCULAR HGB CONC 33.6 g/dL (32.0-36.0); MEAN CORPUSCULAR VOLUME 91.4 fL (80.0-94.0); MEAN PLATELET VOLUME 10.7 fL (7.4-11.4); MONOCYTES # (AUTO) 0.6 10^3/uL (0.0-1.0); NEUTROPHILS # (AUTO) 3.8 10^3/uL (1.5-6.6); NEUTROPHILS % (AUTO) 60.6 %; PLT - PLATELET COUNT 162 10^3/uL (130-450); RED BLOOD COUNT 5.01 10^6/uL (4.70-6.10); RED CELL DISTRIBUTION WIDTH 12.7 % (12.0-15.0); WHITE BLOOD COUNT 6.3 x10^3/uL (4.8-10.8)
[2020-09-24 08:20] LABS: ALBUMIN 4.4 g/dL (3.2-5.5); ALBUMIN/GLOBULIN RATIO 1.7 (1.0-2.2); BILIRUBIN,TOTAL 0.7 mg/dL (0.2-1.0); CALCIUM 9.5 mg/dL (8.5-10.3); CREATININE 1.2 mg/dL (0.6-1.2); POTASSIUM 4.5 mmol/L (3.5-5.0)
== END 2020-09-24 07:47 | disposition home or self-care (01) ==
LOC: LAB 07:46
PROVIDERS: ATTEND Internal Medicine
DX: I10 Essential (primary) hypertension (principal)
CPT/HCPCS: 36415; 80053; 85025

== ENCOUNTER 2021-04-13 09:02 | Outpatient (CLI) | payer MEDICARE ==
[2021-04-13 09:16] LABS: BASOPHILS % (AUTO) 0.5 %; EOSINOPHILS # (AUTO) 0.2 10^3/uL (0.0-0.7); HGB - HEMOGLOBIN 14.9 g/dL (14.0-18.0); LYMPHOCYTES # (AUTO) 1.2 10^3/uL (1.5-3.5); LYMPHOCYTES % (AUTO) 14.2 %; MEAN CORPUSCULAR HGB CONC 32.4 g/dL (32.0-36.0); MEAN CORPUSCULAR VOLUME 92.7 fL (80.0-94.0); MEAN PLATELET VOLUME 11.2 fL (7.4-11.4); MONOCYTES # (AUTO) 0.6 10^3/uL (0.0-1.0); MONOCYTES % (AUTO) 7.1 %; NEUTROPHILS # (AUTO) 6.5 10^3/uL (1.5-6.6); NEUTROPHILS % (AUTO) 75.8 %; PLT - PLATELET COUNT 155 10^3/uL (130-450); RED BLOOD COUNT 4.96 10^6/uL (4.70-6.10); RED CELL DISTRIBUTION WIDTH 12.7 % (12.0-15.0); WHITE BLOOD COUNT 8.5 x10^3/uL (4.8-10.8)
[2021-04-13 09:36] LABS: ALBUMIN 4.5 g/dL (3.2-5.5); ALBUMIN/GLOBULIN RATIO 1.7 (1.0-2.2); ALKALINE PHOSPHATASE 81 IU/L (42-121); ALT ALANINE AMINOTRANSFERASE 22 IU/L (10-60); AST ASPARTATE AMINOTRANSFERASE 20 IU/L (10-42); BILIRUBIN,TOTAL 0.7 mg/dL (0.2-1.0); BUN - BLOOD UREA NITROGEN 21 mg/dL (6-20); CALCIUM 9.6 mg/dL (8.5-10.3); CARBON DIOXIDE - CO2 23 mmol/L (21-32); CHLORIDE 105 mmol/L (101-111); CHOL/HDL RATIO 2.3 (<5.0); CHOLESTEROL 101 mg/dL; CREATININE 1.2 mg/dL (0.6-1.2); GFR - MDRD 59 (>89); GLUCOSE 116 mg/dL (70-100); HDL CHOLESTEROL 44 mg/dL; LDL CHOLESTEROL,CALCULATED 45 mg/dL; POTASSIUM 4.5 mmol/L (3.5-5.0); SODIUM 139 mmol/L (135-145); TOTAL PROTEIN 7.1 g/dL (6.7-8.2); TRIGLYCERIDES 61 mg/dL; VLDL CHOLESTEROL 12 mg/dL
== END 2021-04-13 09:03 | disposition home or self-care (01) ==
LOC: LAB 09:02
PROVIDERS: ATTEND Internal Medicine
DX: I10 Essential (primary) hypertension (principal); E78.5 Hyperlipidemia, unspecified; Z12.5 Encounter for screening for malignant neoplasm of prostate
CPT/HCPCS: 36415; 80053; 80061; 85025; G0103; 83721; 84153

== ENCOUNTER 2023-08-03 08:17 | Outpatient (CLI) | payer MEDICARE ==
[2023-08-03 08:37] LABS: BASOPHILS # (AUTO) 0.1 10^3/uL (0.0-0.1); BASOPHILS % (AUTO) 0.7 %; EOSINOPHILS # (AUTO) 0.2 10^3/uL (0.0-0.7); EOSINOPHILS % (AUTO) 3.3 %; HCT - HEMATOCRIT 44.5 % (42.0-52.0); HGB - HEMOGLOBIN 14.4 g/dL (14.0-18.0); LYMPHOCYTES # (AUTO) 1.7 10^3/uL (1.5-3.5); LYMPHOCYTES % (AUTO) 24.4 %; MEAN CORPUSCULAR HEMOGLOBIN 30.3 pg (27.0-31.0); MEAN CORPUSCULAR HGB CONC 32.4 g/dL (32.0-36.0); MEAN CORPUSCULAR VOLUME 93.7 fL (80.0-94.0); MEAN PLATELET VOLUME 10.6 fL (7.4-11.4); MONOCYTES # (AUTO) 0.7 10^3/uL (0.0-1.0); MONOCYTES % (AUTO) 9.7 %; NEUTROPHILS # (AUTO) 4.3 10^3/uL (1.5-6.6); NEUTROPHILS % (AUTO) 61.5 %; PLT - PLATELET COUNT 156 10^3/uL (130-450); RED BLOOD COUNT 4.75 10^6/uL (4.70-6.10); RED CELL DISTRIBUTION WIDTH 12.6 % (12.0-15.0)
[2023-08-03 08:50] LABS: ALBUMIN 4.1 g/dL (3.2-5.5); ALBUMIN/GLOBULIN RATIO 1.9 (1.0-2.2); ALKALINE PHOSPHATASE 81 IU/L (42-121); ALT ALANINE AMINOTRANSFERASE 15 IU/L (10-60); AST ASPARTATE AMINOTRANSFERASE 15 IU/L (10-42); BILIRUBIN,TOTAL 0.6 mg/dL (0.2-1.0); BUN - BLOOD UREA NITROGEN 19 mg/dL (6-20); CALCIUM 9.5 mg/dL (8.5-10.3); CARBON DIOXIDE - CO2 26 mmol/L (21-32); CHLORIDE 107 mmol/L (101-111); CHOL/HDL RATIO 2.3 (<5.0); CHOLESTEROL 92 mg/dL; CREATININE 1.1 mg/dL (0.6-1.3); GFR - MDRD 64 (>89); GLUCOSE 101 mg/dL (74-104); HDL CHOLESTEROL 40 mg/dL; LDL CHOLESTEROL,CALCULATED 38 mg/dL; POTASSIUM 4.4 mmol/L (3.5-4.5); SODIUM 139 mmol/L (135-145); TOTAL PROTEIN 6.3 g/dL (6.4-8.9); TRIGLYCERIDES 68 mg/dL (48-352); VLDL CHOLESTEROL 14 mg/dL
== END 2023-08-03 08:18 | disposition home or self-care (01) ==
LOC: LAB 08:17
PROVIDERS: ATTEND Nurse Practitioner Acute Care
DX: Z13.228 Encounter for screening for other metabolic disorders (principal); Z13.220 Encounter for screening for lipoid disorders; Z12.5 Encounter for screening for malignant neoplasm of prostate; Z13.0 Encounter for screening for diseases of the blood and blood-forming organs and certain disorders involving the immune mechanism
CPT/HCPCS: 36415; 80053; 80061; 85025; G0103; 83721; 84153

== ENCOUNTER 2023-09-10 06:55 | Outpatient (CLI) | payer MEDICARE ==
--- NOTE | 2023-09-11 16:06 | Ultrasound Report ---
PROCEDURE: Aorta Screening INDICATIONS: HIST OF SMOKING TECHNIQUE: Real time scanning was performed of the aorta and iliac arteries, with image documentatio n. COMPARISON: None. FINDINGS: Aorta: Proximal aortic diameter measures 2.6 x 2.6 cm. Mid-aorta measures 1.8 x 1.8 cm. Distal aor tic diameter is 1 6 x 1.6 cm. Iliac arteries: Right common iliac artery measures 1.1 x 1.0 cm. Left common iliac artery measures 1.0 x 0.9 cm. IMPRESSION: No abdominal aortic aneurysm. Recommended intervals for follow-up imaging of ectatic aortas and abdominal aortic aneurysms, per ACR consensus guidelines: 2.5-2.9 cm: 5 years 3.0-3.4 cm: 3 years 3.5-3.9 cm: 2 years 4.0-4.4 cm: 1 year 4.5-4.9 cm: 6 months + endovascular referral 5.0-5.5 cm: 3-6 months + endovascular referral Reviewed by: Mitra Tillman MD on 09/11/2023 4:05 PM PST Approved by: Mitra Tillman MD on 09/11/2023 4:05 PM PST Station ID: [id number]
== END 2023-09-10 06:56 | disposition home or self-care (01) ==
LOC: DI 06:55
PROVIDERS: ATTEND Nurse Practitioner Acute Care
DX: Z13.6 Encounter for screening for cardiovascular disorders (principal); Z87.891 Personal history of nicotine dependence